=== PATIENT | female | born 1985 | race Caucasian/White ===

== ENCOUNTER 2017-05-11 08:00 | Outpatient (CLI) | payer OTHER | END 2017-05-11 23:59 | disposition home or self-care (01) | LOC: LAB.R 08:00 | PROVIDERS: ATTEND Nurse Practitioner Obstetrics & Gynecology | DX: N76.0 Acute vaginitis (principal) | CPT/HCPCS: 87480; 87510; 87660 ==

== ENCOUNTER 2017-11-06 08:00 | Outpatient (CLI) | payer OTHER ==
[2017-11-09 11:56] LABS: TEST RESULT REPORT
[2017-11-12 16:12] LABS: TEST RESULT REPORT
== END 2017-11-06 08:01 | disposition home or self-care (01) ==
LOC: LAB.R 08:00
PROVIDERS: ATTEND Registered Nurse
DX: N72 Inflammatory disease of cervix uteri (principal)
CPT/HCPCS: 81599; 87070; 87102; 87206; 87491; 87591

== ENCOUNTER 2017-11-27 11:48 | Outpatient (CLI) | payer OTHER | END 2017-11-27 11:49 | disposition home or self-care (01) | LOC: LAB.R 11:48 | PROVIDERS: ATTEND Registered Nurse | DX: N76.89 Other specified inflammation of vagina and vulva (principal) ==

== ENCOUNTER 2017-11-27 11:48 | Outpatient (CLI) | payer OTHER | END 2017-11-27 11:49 | disposition home or self-care (01) | LOC: LAB.R 11:48 | PROVIDERS: ATTEND Registered Nurse | DX: N76.6 Ulceration of vulva (principal) | CPT/HCPCS: 81599 ==

== ENCOUNTER 2017-11-27 12:01 | Outpatient (CLI) | payer OTHER ==
[2017-11-28 10:26] LABS: SOURCE NG
[2017-11-28 12:31] LABS: HIV AG/AB 4TH GEN NON-REACTIVE (NON-REACTIVE)
== END 2017-11-27 12:02 | disposition home or self-care (01) ==
LOC: LAB 12:01
PROVIDERS: ATTEND Registered Nurse
DX: N76.6 Ulceration of vulva (principal); N76.89 Other specified inflammation of vagina and vulva
CPT/HCPCS: 36415; 81599; 87389; 87529

== ENCOUNTER 2018-05-18 11:28 | Outpatient (CLI) | payer OTHER ==
[2018-05-18 12:07] LABS: BASOPHILS # (AUTO) 0.1 10^3/uL (0.0-0.1); BASOPHILS % (AUTO) 0.7 %; EOSINOPHILS # (AUTO) 0.3 10^3/uL (0.0-0.7); HGB - HEMOGLOBIN 13.2 g/dL (12.0-16.0); LYMPHOCYTES % (AUTO) 17.7 %; MEAN CORPUSCULAR HEMOGLOBIN 28.8 pg (27.0-31.0); MEAN CORPUSCULAR HGB CONC 33.1 g/dL (32.0-36.0); MEAN CORPUSCULAR VOLUME 87.1 fL (81.0-99.0); MEAN PLATELET VOLUME 8.1 fL (7.9-10.8); MONOCYTES # (AUTO) 0.6 10^3/uL (0.0-1.0); NEUTROPHILS # (AUTO) 8.4 10^3/uL (1.5-6.6); NEUTROPHILS % (AUTO) 73.6 %; PLT - PLATELET COUNT 219 10^3/uL (130-450); RED BLOOD COUNT 4.58 10^6/uL (4.20-5.40); RED CELL DISTRIBUTION WIDTH 13.9 % (12.0-15.0); WHITE BLOOD COUNT 11.4 x10^3/uL (4.8-10.8)
[2018-05-18 12:24] LABS: BILIRUBIN,URINE NEGATIVE (NEGATIVE); GLUCOSE, URINE (UA) NEGATIVE (NEGATIVE); KETONES,URINE (UA) NEGATIVE (NEGATIVE); LEUKOCYTE ESTERASE, URINE NEGATIVE (NEGATIVE); NITRITE,URINE NEGATIVE (NEGATIVE); OCCULT BLOOD,URINE NEGATIVE (NEGATIVE); PROTEIN,URINE NEGATIVE (NEGATIVE); UROBILINOGEN,URINE 0.2 (NORMAL) E.U./dL (NORMAL)
[2018-05-18 12:29] LABS: CLARITY,URINE CLEAR (CLEAR)
[2018-05-18 13:00] LABS: BACTERIA,URINE Rare /HPF (None Seen); RBC,URINE None Seen /HPF (0-5); SQUAMOUS EPITHELIAL CELL,UR MOD Squamous (<= Few)
[2018-05-18 13:30] LABS: FREE T3 3.51 pg/mL (2.5-3.9)
[2018-05-19 13:30] LABS: HEPATITIS B SURFACE ANTIGEN NON-REACTIVE (NON-REACTIVE); HEPATITIS C ANTIBODY NON-REACTIVE (NON-REACTIVE); HIV AG/AB 4TH GEN NON-REACTIVE (NON-REACTIVE)
== END 2018-05-18 11:29 | disposition home or self-care (01) ==
LOC: LAB 11:28
PROVIDERS: ATTEND Nurse Practitioner Obstetrics & Gynecology
DX: Z36.9 Encounter for antenatal screening, unspecified (principal); E34.9 Endocrine disorder, unspecified
CPT/HCPCS: 36415; 81001; 81599; 84443; 84481; 85025; 86762; 86803; 86850; 86900; 86901; 87340; 87389

== ENCOUNTER 2018-06-18 11:22 | Outpatient (CLI) | payer OTHER, MEDICAID | END 2018-06-18 11:23 | disposition home or self-care (01) | LOC: LAB 11:22 | PROVIDERS: ATTEND Registered Nurse | DX: Z53.9 Procedure and treatment not carried out, unspecified reason (principal) ==

== ENCOUNTER 2018-06-19 09:31 | Outpatient (CLI) | payer OTHER, MEDICAID ==
[2018-06-19 10:20] LABS: HB2 TOTAL 14.5 g/dL; HEMOGLOBIN A1C 0.44 g/dL; HEMOGLOBIN A1C % 4.9 % (4.6-6.2)
== END 2018-06-19 09:32 | disposition home or self-care (01) ==
LOC: LAB 09:31
PROVIDERS: ATTEND Registered Nurse
DX: O99.211 Obesity complicating pregnancy, first trimester (principal); Z3A.12 12 weeks gestation of pregnancy
CPT/HCPCS: 36415; 81599; 82947; 83036

== ENCOUNTER 2018-08-10 12:16 | Outpatient (CLI) | payer OTHER, MEDICAID | END 2018-08-10 12:17 | disposition home or self-care (01) | LOC: LAB 12:16 | PROVIDERS: ATTEND Nurse Practitioner Obstetrics & Gynecology | DX: Z13.79 Encounter for other screening for genetic and chromosomal anomalies (principal) | CPT/HCPCS: 36415; 81599; 82105; 82677; 84702; 86336 ==

== ENCOUNTER 2018-08-16 12:44 | Outpatient (CLI) | payer OTHER, MEDICAID ==
--- NOTE | 2018-08-16 15:28 | Ultrasound Report ---
Reason: ENCOUNTER FOR SCREENING,UNSPECIFIED Procedure Date: 08/16/2018 Accession Number: [id number] / [id number] Procedure: US - OB Detailed Eval CPT Code: FULL RESULT: EXAM: COMPLETE OBSTETRICAL ULTRASOUND EXAM DATE: 08/16/2018 02:42 PM. CLINICAL HISTORY: anatomic survey. COMPARISON: None. TECHNIQUE: Real-time sonographic evaluation of the fetus performed by the compensator. Multiple billing representative static images were saved for review. Additional transvaginal imaging to more accurately evaluate cervical length/placental position/etc. DATING: Established EGA , the patient is unsure of her last menstrual period or the established gestational age. GENERAL EVALUATION Mathis . Cardiac activity: 159 bpm. movement: Visualized. Presentation: Cephalic. Placenta: Normal position. No evidence for previa. Umbilical cord: 3 vessel cord. Central placental cord origin. Amniotic fluid: Subjectively normal. MVP 4 cm. BIOMETRY Bi-Parietal Diameter (BPD): 4.8 cm,20 weeks/3 days Head Circumference (HC): 17.9 cm,20 weeks/3 days Abdominal Circumference (AC): 15.9 cm, 21 weeks/1day Femur Length (FL): 3.7 cm, 21 weeks/5 days Estimated Weight: 411 gm. ANATOMY The intracranial structures, profile, face/nose/lips, spine, 4 chamber heart and outflow tracts, stomach, abdominal wall and cord insertion, diaphragm, kidneys, bladder, and extremities were visualized and demonstrate no abnormality. MATERNAL STRUCTURES Uterus: Unremarkable. Cervix: Long and closed. Transabdominal length 6 cm. Right ovary/adnexa: Unremarkable. Left ovary/adnexa: Unremarkable. Free fluid: None. IMPRESSION: 1. Mathis live intrauterine with gestational age 21 weeks and 0 days based on current ultrasound. 2. Normal anatomic survey. No anatomic abnormalities are detected at this time. RADIA
== END 2018-08-16 12:45 | disposition home or self-care (01) ==
LOC: DI 12:44
PROVIDERS: ATTEND Registered Nurse
DX: Z36.9 Encounter for antenatal screening, unspecified (principal); Z3A.21 21 weeks gestation of pregnancy
CPT/HCPCS: 76811

== ENCOUNTER 2018-10-04 08:40 | Outpatient (CLI) | payer OTHER, MEDICAID ==
[2018-10-04 12:39] LABS: HGB - HEMOGLOBIN 12.7 g/dL (12.0-16.0); MEAN CORPUSCULAR HEMOGLOBIN 29.1 pg (27.0-31.0); MEAN CORPUSCULAR HGB CONC 34.9 g/dL (32.0-36.0); MEAN CORPUSCULAR VOLUME 83.2 fL (81.0-99.0); MEAN PLATELET VOLUME 8.5 fL (7.9-10.8); RED BLOOD COUNT 4.38 10^6/uL (4.20-5.40); RED CELL DISTRIBUTION WIDTH 13.8 % (12.0-15.0); WHITE BLOOD COUNT 11.8 x10^3/uL (4.8-10.8)
[2018-10-04 13:02] LABS: THYROID STIMULATING HORMONE 1.82 uIU/mL (0.34-5.60)
[2018-10-04 13:04] LABS: FREE T4 (FREE THYROXINE) 0.7 ng/dL (0.58-1.64)
== END 2018-10-04 08:41 | disposition home or self-care (01) ==
LOC: LAB.WCP 08:40
PROVIDERS: ATTEND Nurse Practitioner Obstetrics & Gynecology
DX: Z36.9 Encounter for antenatal screening, unspecified (principal)
CPT/HCPCS: 36415; 82950; 84439; 84443; 85025; 85027; 86850

== ENCOUNTER 2018-10-25 10:24 | Outpatient (CLI) | payer OTHER, MEDICAID | END 2018-10-25 10:25 | disposition home or self-care (01) | LOC: LAB 10:24 | PROVIDERS: ATTEND Registered Nurse | DX: E00.9 Congenital iodine-deficiency syndrome, unspecified (principal) | CPT/HCPCS: 36415; 84443 ==

== ENCOUNTER 2018-11-24 11:27 | Outpatient (CLI) | payer OTHER, MEDICAID ==
[2018-11-25 10:32] LABS: HEPATITIS C ANTIBODY NON-REACTIVE (NON-REACTIVE)
[2018-11-25 11:47] LABS: HIV AG/AB 4TH GEN NON-REACTIVE (NON-REACTIVE)
== END 2018-11-24 11:28 | disposition home or self-care (01) ==
LOC: LAB 11:27
PROVIDERS: ATTEND Registered Nurse
DX: E03.9 Hypothyroidism, unspecified (principal)
CPT/HCPCS: 36415; 81599; 84443; 86592; 86803; 87389

== ENCOUNTER 2018-12-03 15:56 | Outpatient (CLI) | payer OTHER, MEDICAID | END 2018-12-03 23:59 | disposition home or self-care (01) | LOC: LAB.R 15:56 | PROVIDERS: ATTEND Nurse Practitioner Obstetrics & Gynecology | DX: Z36.85 Encounter for antenatal screening for Streptococcus B (principal) | CPT/HCPCS: 87081; 87797 ==

== ENCOUNTER 2018-12-10 08:00 | Outpatient (CLI) | payer OTHER, MEDICAID | END 2018-12-10 23:59 | disposition home or self-care (01) | LOC: LAB.R 08:00 | PROVIDERS: ATTEND Nurse Practitioner Obstetrics & Gynecology | DX: N89.8 Other specified noninflammatory disorders of vagina (principal) | CPT/HCPCS: 87480; 87510; 87660 ==

== ENCOUNTER 2019-02-16 08:00 | Outpatient (CLI) | payer OTHER, MEDICAID ==
[2019-02-16 19:42] LABS: T4 (THYROXINE) 6.11 ug/dL (6.09-12.23)
[2019-02-16 19:46] LABS: THYROID STIMULATING HORMONE 1.21 uIU/mL (0.34-5.60)
== END 2019-02-16 23:59 | disposition home or self-care (01) ==
LOC: LAB.N 08:00
PROVIDERS: ATTEND Nurse Practitioner Obstetrics & Gynecology
DX: E03.9 Hypothyroidism, unspecified (principal)
CPT/HCPCS: 36415; 84436; 84443

== ENCOUNTER 2019-04-11 08:00 | Outpatient (CLI) | payer MEDICAID, OTHER ==
[2019-04-11 13:25] LABS: T4 (THYROXINE) 6.31 ug/dL (6.09-12.23)
[2019-04-11 13:29] LABS: THYROID STIMULATING HORMONE 1.4 uIU/mL (0.34-5.60)
== END 2019-04-11 23:59 | disposition home or self-care (01) ==
LOC: LAB.N 08:00
PROVIDERS: ATTEND Nurse Practitioner Obstetrics & Gynecology
DX: E03.9 Hypothyroidism, unspecified (principal)
CPT/HCPCS: 36415; 84436; 84443

== ENCOUNTER 2019-04-27 08:00 | Outpatient (CLI) | payer OTHER ==
[2019-04-27 20:59] LABS: CANDIDA GROUP DNA NEGATIVE (NEGATIVE); CANDIDA KRUSEI DNA NEGATIVE (NEGATIVE); TRICHOMONAS VAGINALIS DNA NEGATIVE (NEGATIVE)
== END 2019-04-27 23:59 | disposition home or self-care (01) ==
LOC: LAB.R 08:00
PROVIDERS: ATTEND Nurse Practitioner Obstetrics & Gynecology
DX: N76.0 Acute vaginitis (principal)
CPT/HCPCS: 87661; 87801

== ENCOUNTER 2020-05-08 15:41 | Outpatient (CLI) | payer OTHER ==
[2020-05-08 19:36] LABS: FREE T4 (FREE THYROXINE) 0.62 ng/dL (0.58-1.64)
== END 2020-05-08 23:59 | disposition home or self-care (01) ==
LOC: LAB.WCP 15:41
PROVIDERS: ATTEND Family Medicine
DX: E03.9 Hypothyroidism, unspecified (principal)
CPT/HCPCS: 36415; 84439; 84443

== ENCOUNTER 2021-02-11 09:25 | Outpatient (CLI) | payer OTHER ==
--- NOTE | 2021-02-11 12:33 | XRAY Report ---
PROCEDURE: Foot 3 View BILAT INDICATIONS: BILATERAL FOOT PAIN TECHNIQUE: 3 views of the foot were acquired. COMPARISON: X-ray left ankle 01/08/2014 FINDINGS: Bones: No fractures or dislocations. No suspicious bony lesions. Soft tissues: No tibiotalar joint effusion. Achilles tendon appears normal. IMPRESSION: No visualized acute fracture or dislocation. However, occult injury cannot be excluded. Recommend sharan rt interval imaging follow-up in 7-10 days as clinically indicated for additional evaluation. Reviewed by: Rosalinda Cosme MD on 02/11/2021 12:32 PM PDT Approved by: Rosalinda Cosme MD on 02/11/2021 12:32 PM PDT Station ID: [id number]
== END 2021-02-11 09:26 | disposition home or self-care (01) ==
LOC: DI.N 09:25
PROVIDERS: ATTEND Family Medicine
DX: M79.672 Pain in left foot (principal); M79.671 Pain in right foot; E03.9 Hypothyroidism, unspecified
CPT/HCPCS: 36415; 84443

== ENCOUNTER 2021-02-11 09:51 | Outpatient (CLI) | payer OTHER ==
[2021-02-11 13:17] LABS: THYROID STIMULATING HORMONE 3.73 uIU/mL (0.34-5.60)
== END 2021-02-11 09:52 | disposition home or self-care (01) ==
LOC: LAB.N 09:51
PROVIDERS: ATTEND Family Medicine
DX: E03.9 Hypothyroidism, unspecified (principal)
CPT/HCPCS: 36415; 84443

== ENCOUNTER 2021-11-14 07:54 | Outpatient (CLI) | payer OTHER ==
[2021-11-15 02:04] LABS: BACTERIAL VAGINOSIS DNA NEGATIVE (NEGATIVE); CANDIDA GLABRATA DNA NEGATIVE (NEGATIVE); CANDIDA GROUP DNA NEGATIVE (NEGATIVE); CANDIDA KRUSEI DNA NEGATIVE (NEGATIVE); TRICHOMONAS VAGINALIS DNA NEGATIVE (NEGATIVE)
== END 2021-11-14 07:55 | disposition home or self-care (01) ==
LOC: LAB.R 07:54
PROVIDERS: ATTEND Nurse Practitioner Obstetrics & Gynecology
DX: N76.0 Acute vaginitis (principal)
CPT/HCPCS: 87661; 87801

== ENCOUNTER 2022-02-07 09:30 | Outpatient (CLI) | payer OTHER ==
[2022-02-07 09:36] LABS: MUDS CUTOFF CONCENTRATIONS CUTOFF CONC BELOW:
[2022-02-07 12:05] LABS: AMPHETAMINE SCREEN,URINE NEGATIVE (NEGATIVE); BARBITURATE SCREEN,UR NEGATIVE (NEGATIVE); BENZODIAZEPINES SCREEN, URINE NEGATIVE (NEGATIVE); COCAINE SCREEN URINE NEGATIVE (NEGATIVE); METHADONE SCREEN, URINE NEGATIVE (NEGATIVE); METHAMPHETAMINES SCREEN, URINE NEGATIVE (NEGATIVE); OPIATE SCREEN, URINE NEGATIVE (NEGATIVE); OXYCODONE SCREEN, URINE NEGATIVE (NEGATIVE); PROPOXYPHENE SCREEN, URINE NEGATIVE (NEGATIVE); THC CANNABINOID SCREEN, URINE POSITIVE (NEGATIVE); TRICYCLIC ANTIDEPRESSANT,URINE NEGATIVE (NEGATIVE)
== END 2022-02-07 09:31 | disposition home or self-care (01) ==
LOC: LAB.N 09:30
PROVIDERS: ATTEND Psychiatry & Neurology Psychiatry
DX: Z79.899 Other long term (current) drug therapy (principal)
CPT/HCPCS: 80306

== ENCOUNTER 2022-08-23 10:32 | Outpatient (CLI) | payer OTHER ==
[2022-08-23 19:24] LABS: BASOPHILS % (AUTO) 0.3 %; EOSINOPHILS # (AUTO) 0.3 10^3/uL (0.0-0.7); EOSINOPHILS % (AUTO) 2.9 %; HCT - HEMATOCRIT 42.1 % (37.0-47.0); HGB - HEMOGLOBIN 13.8 g/dL (12.0-16.0); LYMPHOCYTES # (AUTO) 1.4 10^3/uL (1.5-3.5); LYMPHOCYTES % (AUTO) 15.8 %; MEAN CORPUSCULAR HEMOGLOBIN 27.9 pg (27.0-31.0); MEAN CORPUSCULAR HGB CONC 32.8 g/dL (32.0-36.0); MEAN CORPUSCULAR VOLUME 85.2 fL (81.0-99.0); MEAN PLATELET VOLUME 10.5 fL (7.9-10.8); MONOCYTES # (AUTO) 0.5 10^3/uL (0.0-1.0); MONOCYTES % (AUTO) 5.6 %; NEUTROPHILS # (AUTO) 6.7 10^3/uL (1.5-6.6); NEUTROPHILS % (AUTO) 74.8 %; PLT - PLATELET COUNT 235 10^3/uL (130-450); RED BLOOD COUNT 4.94 10^6/uL (4.20-5.40); RED CELL DISTRIBUTION WIDTH 13.3 % (12.0-15.0)
[2022-08-23 19:41] LABS: ALBUMIN 4.1 g/dL (3.2-5.5); ALBUMIN/GLOBULIN RATIO 1.3 (1.0-2.2); ALKALINE PHOSPHATASE 48 IU/L (42-121); ALT ALANINE AMINOTRANSFERASE 23 IU/L (10-60); AST ASPARTATE AMINOTRANSFERASE 19 IU/L (10-42); BILIRUBIN,TOTAL 0.9 mg/dL (0.2-1.0); BUN - BLOOD UREA NITROGEN 10 mg/dL (6-20); CALCIUM 9.2 mg/dL (8.5-10.3); CARBON DIOXIDE - CO2 23 mmol/L (21-32); CHLORIDE 106 mmol/L (101-111); CHOL/HDL RATIO 5.4 (<4.4); CHOLESTEROL 200 mg/dL; CREATININE 0.8 mg/dL (0.4-1.0); GFR - MDRD 82 (>89); GLUCOSE 98 mg/dL (70-100); HDL CHOLESTEROL 37 mg/dL; LDL CHOLESTEROL,CALCULATED 143 mg/dL; LDL/HDL RATIO 3.9 (<4.4); POTASSIUM 4.6 mmol/L (3.5-5.0); SODIUM 137 mmol/L (135-145); TOTAL PROTEIN 7.3 g/dL (6.7-8.2); TRIGLYCERIDES 100 mg/dL; VLDL CHOLESTEROL 20 mg/dL
[2022-08-23 19:55] LABS: THYROID STIMULATING HORMONE 2.16 uIU/mL (0.34-5.60)
[2022-08-23 19:57] LABS: FREE T4 (FREE THYROXINE) 0.83 ng/dL (0.58-1.64)
== END 2022-08-23 10:33 | disposition home or self-care (01) ==
LOC: LAB.N 10:32
PROVIDERS: ATTEND Physician Assistant
DX: E03.9 Hypothyroidism, unspecified (principal); Z79.899 Other long term (current) drug therapy; Z13.220 Encounter for screening for lipoid disorders
CPT/HCPCS: 36415; 80053; 80061; 83721; 84439; 84443; 85025

== ENCOUNTER 2023-05-30 12:46 | Outpatient (CLI) | payer OTHER ==
--- NOTE | 2023-05-30 20:11 | XRAY Report ---
PROCEDURE: Chest 2 View X-Ray INDICATIONS: COUGH CHRONIC TECHNIQUE: 2 views of the chest were acquired. COMPARISON: None. FINDINGS: Surgical changes and devices: None. Lungs and pleura: No pleural effusions or pneumothorax. Lungs are clear. Mediastinum: Mediastinal contours appear normal. Heart size is normal. Bones and chest wall: No suspicious bony lesions. Overlying soft tissues appear unremarkable. IMPRESSION: No acute cardiopulmonary process. Reviewed by: Frank Horne on 05/30/2023 7:10 PM HAMZAH Approved by: Frank Horne on 05/30/2023 7:10 PM HIADDY Station ID: [id number]
== END 2023-05-30 12:47 | disposition home or self-care (01) ==
LOC: DI 12:46
PROVIDERS: ATTEND Physician Assistant
DX: R05.3 Chronic cough (principal)

== ENCOUNTER 2023-09-26 09:35 | Outpatient (CLI) | payer OTHER ==
[2023-09-26 18:51] LABS: BASOPHILS % (AUTO) 0.5 %; EOSINOPHILS # (AUTO) 0.2 10^3/uL (0.0-0.7); EOSINOPHILS % (AUTO) 2.9 %; HCT - HEMATOCRIT 44.4 % (37.0-47.0); HGB - HEMOGLOBIN 14.4 g/dL (12.0-16.0); LYMPHOCYTES % (AUTO) 24.5 %; MEAN CORPUSCULAR HEMOGLOBIN 28.1 pg (27.0-31.0); MEAN CORPUSCULAR HGB CONC 32.4 g/dL (32.0-36.0); MEAN CORPUSCULAR VOLUME 86.7 fL (81.0-99.0); MEAN PLATELET VOLUME 10.5 fL (7.9-10.8); MONOCYTES # (AUTO) 0.4 10^3/uL (0.0-1.0); MONOCYTES % (AUTO) 5.1 %; NEUTROPHILS # (AUTO) 5.4 10^3/uL (1.5-6.6); NEUTROPHILS % (AUTO) 66.5 %; PLT - PLATELET COUNT 235 10^3/uL (130-450); RED BLOOD COUNT 5.12 10^6/uL (4.20-5.40); RED CELL DISTRIBUTION WIDTH 13.4 % (12.0-15.0); WHITE BLOOD COUNT 8.2 x10^3/uL (4.8-10.8)
[2023-09-26 21:27] LABS: ALBUMIN 4.4 g/dL (3.2-5.5); ALBUMIN/GLOBULIN RATIO 1.6 (1.0-2.2); ALKALINE PHOSPHATASE 50 IU/L (42-121); ALT ALANINE AMINOTRANSFERASE 15 IU/L (10-60); AST ASPARTATE AMINOTRANSFERASE 15 IU/L (10-42); BILIRUBIN,TOTAL 0.5 mg/dL (0.2-1.0); BUN - BLOOD UREA NITROGEN 13 mg/dL (6-20); CALCIUM 9.5 mg/dL (8.5-10.3); CARBON DIOXIDE - CO2 26 mmol/L (21-32); CHLORIDE 104 mmol/L (101-111); CHOL/HDL RATIO 4.5 (<4.4); CHOLESTEROL 208 mg/dL; CREATININE 0.9 mg/dL (0.6-1.3); GFR - MDRD 70 (>89); GLUCOSE 87 mg/dL (74-104); HDL CHOLESTEROL 46 mg/dL; LDL CHOLESTEROL,CALCULATED 135 mg/dL; LDL/HDL RATIO 2.9 (<4.4); POTASSIUM 4.6 mmol/L (3.5-4.5); SODIUM 138 mmol/L (135-145); TOTAL PROTEIN 7.2 g/dL (6.4-8.9); TRIGLYCERIDES 135 mg/dL (48-352); VLDL CHOLESTEROL 27 mg/dL
[2023-09-27 01:04] LABS: THYROID STIMULATING HORMONE 2.99 uIU/mL (0.34-5.60)
== END 2023-09-26 09:36 | disposition home or self-care (01) ==
LOC: LAB.N 09:35
PROVIDERS: ATTEND Physician Assistant
DX: E03.9 Hypothyroidism, unspecified (principal); E66.9 Obesity, unspecified; Z13.220 Encounter for screening for lipoid disorders
CPT/HCPCS: 36415; 80053; 80061; 83721; 84439; 84443; 85025